=== PATIENT | female | born 1995 | race Caucasian/White ===

== ENCOUNTER 2018-10-13 00:13 | Emergency (ER) | payer OTHER ==
[2018-10-13] MEDS: IBUPROFEN 600 MG TAB PO (01:50)
[2018-10-13] MEDS: CYCLOBENZAPRINE 10 MG TAB PO (01:50)
== END 2018-10-13 02:23 | disposition home or self-care (01) ==
LOC: FTE 00:13
DX: S80.12XA Contusion of left lower leg, initial encounter (principal); M62.838 Other muscle spasm; V49.49XA Driver injured in collision with other motor vehicles in traffic accident, initial encounter
CPT/HCPCS: 99283; Z7502